=== PATIENT | male | born 1965 | race Caucasian/White ===

== ENCOUNTER 2024-03-26 12:10 | Emergency (ER) | payer OTHER ==
[~2024-03-26] VITALS: Ht 182.9 cm; Wt 129.5 kg
[2024-03-26] MEDS ORDERED: CEPHALEXIN500 M1 PO (13:47)
[2024-03-26 13:58] VITALS: BP 150/88
== END 2024-03-26 14:06 | disposition home or self-care (01) ==
LOC: ED 12:10
DX: S61.210A Laceration without foreign body of right index finger without damage to nail, initial encounter (principal); W27.0XXA Contact with workbench tool, initial encounter
CPT/HCPCS: 90715